=== PATIENT | male | born 1980 | race Caucasian/White ===

== ENCOUNTER 2023-10-21 17:56 | Emergency (ER) | payer SELFPAY ==
[~2023-10-21] VITALS: Ht 167.6 cm; Wt 77.0 kg
[2023-10-21 17:59] VITALS: TEMP 98.6; O2SAT 99
[2023-10-21] MEDS ORDERED: HYDROCODONE/ACETAMINOPHEN 10/325MG TABLET PO ONE (18:30)
[2023-10-21] MEDS ORDERED: IBUP-2030 MT (20:42)
[2023-10-21] MEDS ORDERED: CYCL5TAB MT (20:42)
[2023-10-21] MEDS: HYDROCODONE/ACETAMINOPHEN 10/325MG TABLET PO NR (21:24)
[2023-10-21 21:27] VITALS: BP 153/109; PULSE 92; RESP 20
== END 2023-10-21 21:29 | disposition home or self-care (01) ==
LOC: ER 17:56
DX: S16.1XXA Strain of muscle, fascia and tendon at neck level, initial encounter (principal); S39.012A Strain of muscle, fascia and tendon of lower back, initial encounter; I10 Essential (primary) hypertension; V98.8XXA Other specified transport accidents, initial encounter; Y93.89 Activity, other specified; Y92.89 Other specified places as the place of occurrence of the external cause; Y99.8 Other external cause status
CPT/HCPCS: 71045; 72100; 99284